=== PATIENT | female | born 1960 | race Caucasian/White ===

== ENCOUNTER 2017-02-17 13:28 | Inpatient (IN) | payer OTHER ==
[2017-02-17 17:04] VITALS: BMI 31.9
--- NOTE | 2017-02-17 18:02 | HP ---
CIWA Score - CIWA Score Nausea/Vomitin-Int. Nausea w/Dry Heave Muscle Tremors: 3 Anxiety: 4-Mod. Anxious/Guarded Agitation: 2 Paroxysmal Sweats: 2 Orientation: 2-Disoriented Date<2 days Tacttile Disturbances: 0-None Auditory Disturbances: 2-Mild Harshness/Frighten Visual Disturbances: 2-Mild Sensitivity Headache: 0-None Present CIWA-Ar Total Score: 21 Admission ROS S - HPI Chief Complaint: "I'm here because drinking has become something that I am always thinking about and I need to stop." Pt. is here to Detox from Alcohol. Allergies/Adverse Reactions: Allergies Allergy/AdvReac Type Severity Reaction Status Date / Time No Known Allergies Allergy Verified 02/17/17 17:25 History of Present Illness: Pt. is a 56 YO female here to Detox from Alcohol. This is pt.'s first Detox admission at [facility]. Pt. had a Det[place] admission at [facility] in [place]. Exam Limitations: No Limitations - Ebola screening Have you traveled outside of the country in the last 21 days: No Have you had contact with anyone from an Ebola affected area: No Have you been sick,other than usual withdrawal symptoms: No Do you have a fever: No - Review of Systems Constitutional: Chills, Diaphoresis, Fever, Loss of Appetite, Malaise, Night Sweats, Changes in sleep EENT: reports: Dental Problems (2 chipped teeth.) Respiratory: reports: SOB with Exertion Cardiac: reports: Palpitations GI: reports: Diarrhea, Nausea, Poor Appetite : reports: No Symptoms Reported Musculoskeletal: reports: No Symptoms Reported Integumentary: reports: Other (Small scabbing wound on right side of chin; started as pimple and patient has scratched at it. Small elavated papule on posterior hairline X 5-6 months. Patient denies discomfort at site, but has scratched at it frequently.) Neuro: reports: Tremors Endocrine: reports: No Symptoms Reported Hematology: reports: Easy Bruising Psychiatric: reports: Mood/Affect Appropiate, Orientated x3, Anxious, Depressed Other Systems: Reviewed and Negative Patient History - Patient Medical History Hx Anemia: No Hx Asthma: Yes (Albuterol Inhaler, Singulair.) Hx Chronic Obstructive Pulmonary Disease (COPD): No Hx Cancer: No Hx Cardiac Disorders: No Hx Congestive Heart Failure: No Hx Hypertension: No Hx Hypercholesterolemia: No Hx Pacemaker: No HX Cerebrovascular Accident: No Hx Seizures: No Hx Dementia: No Hx Diabetes: Yes (Type II; Takes Metformin (Last Taken approx. 5 days ago).) Hx Gastrointestinal Disorders: No Hx Liver Disease: Yes (Fatty Liver; 'Porcelin (Hardened) Gallbladder') Hx Genitourinary Disorders: No Hx Sexually Transmitted Disorders: No Hx Renal Disease (ESRD): No Hx Thyroid Disease: No Hx Human Immunodeficiency Virus (HIV): No (Last tested: 2017: NEGATIVE.) Hx Hepatitis C: No (Never Tested.) Hx Depression: Yes (On meds. TAKES GABAPENTIN FOR ANXIETY.) Hx Suicide Attempt: No (PATIENT DENIES CURRENT SI / HI.) Hx Bipolar Disorder: No Hx Schizophrenia: No Other Medical History: DENIES. - Patient Surgical History Past Surgical History: No Hx Neurologic Surgery: No Hx Cataract Extraction: No Hx Cardiac Surgery: No Hx Lung Surgery: No Hx Breast Surgery: No Hx Breast Biopsy: No Hx Abdominal Surgery: No Hx Appendectomy: No Hx Cholecystectomy: No Hx Genitourinary Surgery: No Hx Section: No Hx Orthopedic Surgery: No Hx Hysterectomy: No Anesthesia Reaction: No - PPD History Previous Implant?: Yes Documented Results: Negative w/o proof Implanted On Prior [facility] Admission?: No PPD to be Administered?: Yes - Reproductive History Patient is a Female of Child Bearing Age (11 -55 yrs old): Yes Last Menstrual Period: 09/22/16 Patient : No - Smoking Cessation Smoking history: Current every day smoker Have you smoked in the past 12 months: Yes Aproximately how many cigarettes per day: 6 Cigars Per Day: 0 Hx Chewing Tobacco Use: No Initiated information on smoking cessation: Yes 'Breaking Loose' booklet given: 02/17/17 (GIVEN TO PATIENT.) - Substance & Tx. History Hx Alcohol Use: Yes Hx Substance Use: Yes Substance Use Type: Alcohol Hx Substance Use Treatment: Yes (Detox admission at [facility] ([place] [facility] [place] 10/2016.) - Substances Abused Alcohol Route: Oral Frequency: Daily Amount used: 3-4 25 oz beers Age of first use: 18 Date of Last Use: 02/17/17 Family Disease History - Family Disease History Family Disease History: CA: Grandparent (Stomach.) Admission Physical Exam S - Vital Signs Vital Signs: Vital Signs - 24 hr 02/17/17 17:01 Temperature 98.3 F Pulse Rate 110 H Respiratory 18 Rate Blood Pressure 149/87 - Physical General Appearance: Yes: No Apparent Distress, Nourished, Appropriately Dressed , Tremorous, Anxious HEENTM: Yes: Hearing grossly Normal, Normocephalic, Normal Voice, TIA, Pharynx Normal Respiratory: Yes: Chest Non-Tender, No Respiratory Distress, No Accessory Muscle Use, Wheezing Neck: Yes: No masses,lesions,Nodules, Supple, Trachea in good position Breast: Yes: Breast Exam Deferred Cardiology: Yes: Regular Rhythm, Regular Rate, S1, S2 Abdominal: Yes: Normal Bowel Sounds, Non Tender, Flat, Soft Genitourinary: Yes: Within Normal Limits Back: Yes: Normal Inspection Musculoskeletal: Yes: full range of Motion, Gait Steady Extremities: Yes: Normal Range of Motion, Non-Tender, Tremors Neurological: Yes: Fully Oriented, Alert, Normal Mood/Affect, Normal Response Integumentary: Yes: Normal Color, Dry, Warm, Other (Small scabbing wound on right side of chin; started as pimple and patient has scratched at it. Small elavated papule on posterior hairline X 5-6 months. Patient denies discomfort at site, but has scratched at it frequently. Patient advised to follow-up with [facility] after discharge from detox for further evaluation.) Lymphatic: Yes: Within Normal Limits - Diagnostic (1) Alcohol dependence with uncomplicated withdrawal Current Visit: Yes Status: Acute (2) Nicotine dependence Current Visit: Yes Status: Chronic Qualifiers: Nicotine product type: cigarettes Substance use status: uncomplicated Qualified Code(s): F17.210 - Nicotine dependence, cigarettes, uncomplicated; F17.210 - Nicotine dependence, cigarettes, uncomplicated (3) Type II diabetes mellitus Current Visit: Yes Status: Acute Qualifiers: Diabetes mellitus complication status: without complication Diabetes mellitus cargo operations agent insulin use: without cargo operations agent use Qualified Code(s): E11.9 - Type 2 diabetes mellitus without complications; E11.9 - Type 2 diabetes mellitus without complications; E11.9 - Type 2 diabetes mellitus without complications; E11.9 - Type 2 diabetes mellitus without complications (4) Depression Current Visit: Yes Status: Chronic Qualifiers: Depression Type: unspecified Qualified Code(s): F32.9 - Major depressive disorder, single episode, unspecified; F32.9 - Major depressive disorder, single episode, unspecified; F32.9 - Major depressive disorder, single episode, unspecified (5) Fatty liver Current Visit: Yes Status: Chronic Cleared for Admission [facility] - Detox or Rehab [facility] Level of Care: Medically Managed Detox Regimen/Protocol: Librium [facility] Breath Alcohol Content Breath Alcohol Content: 0 Urine Pregancy Test - Result Urine Test Results: Negative- NO Line Present Urine Drug Screen - Results Drug Screen Negative: No Urine Drug Screen Results: OPI-Opiates
[2017-02-17] MEDS ORDERED: MENTHOL/PHENOL 1 EACH UD MM PRN (18:35)
[2017-02-17] MEDS ORDERED: chlordiazePOXIDE HCL 25 MG CAPSULE PO PRN (18:35)
[2017-02-17] MEDS ORDERED: chlordiazePOXIDE HCL 25 MG CAPSULE PO ONE (18:35)
[2017-02-17] MEDS ORDERED: NICOTINE POLACRILEX 2 MG GUM BC PRN (18:35)
[2017-02-17] MEDS ORDERED: MAGNESIUM HYDROX 2400MG/30ML ORAL SUSPENSION 30 ML CUP PO PRN (18:35)
[2017-02-17] MEDS ORDERED: ACETAMINOPHEN 325 MG TABLET (FP) PO PRN (18:35)
[2017-02-17] MEDS ORDERED: guaiFENesin/D-METHORPHAN HB 10 ML UNIT-DOSE CUPS PO PRN (18:35)
[2017-02-17] MEDS ORDERED: IBUPROFEN 400 MG TABLET (FP) PO PRN (18:35)
[2017-02-17] MEDS ORDERED: MAG HYDROX/AL HYDROX/SIMETH 30 ML UNIT-DOSE CUP PO PRN (18:35)
[2017-02-17] MEDS ORDERED: P-EPHED 60MG/TRIPROLIDI 2.5MG TABLET PO PRN (18:35)
[2017-02-17] MEDS ORDERED: MAGNESIUM CITRATE 300 ML BOTTLE PO PRN (18:35)
[2017-02-17] MEDS ORDERED: metFORMIN HCL 500 MG TABLET (FP) PO ONE ×2 (18:42→22:00)
[2017-02-17 21:18] LABS: URINE APPEARANCE CLEAR; URINE BILIRUBIN NEGATIVE (NEGATIVE); URINE BLOOD NEGATIVE (NEGATIVE); URINE COLOR YELLOW; URINE GLUCOSE (UA) 1+ (NEGATIVE); URINE KETONE NEGATIVE (NEGATIVE); URINE NITRITE NEGATIVE (NEGATIVE); URINE PROTEIN NEGATIVE (NEGATIVE); URINE UROBILINOGEN NEGATIVE mg/dL (0.2-1.0)
[2017-02-17] MEDS: NICOTINE 14 MG/24 HOURS TOPICAL PATCH TD SCH (21:50)
[2017-02-17] MEDS: THIAMINE HCL 100 MG TABLET (FP) PO SCH (21:50)
[2017-02-17] MEDS: MONTELUKAST NA 10 MG TABLET PO SCH (21:51)
[2017-02-17] MEDS: chlordiazePOXIDE HCL 25 MG CAPSULE PO SCH (22:01)
[2017-02-17] MEDS: BACITRACIN 0.9 GM PACKET TP SCH (22:44)
[2017-02-17 22:46] LABS: URINE LEUK ESTERASE Negative (NEGATIVE)
[2017-02-17] MEDS: diphenhydrAMINE HCL 50 MG CAPSULE PO PRN (23:12)
[2017-02-18] MEDS: chlordiazePOXIDE HCL 25 MG CAPSULE PO SCH ×4 (05:52→22:54)
[2017-02-18] MEDS: metFORMIN HCL 500 MG TABLET (FP) PO SCH ×2 (08:00→17:23)
[2017-02-18] MEDS: ALBUTEROL SO4 18 GM HFA INHALER IH PRN ×2 (09:57→22:56)
[2017-02-18] MEDS: BACITRACIN 0.9 GM PACKET TP SCH ×2 (10:38→22:54)
[2017-02-18] MEDS: NICOTINE 14 MG/24 HOURS TOPICAL PATCH TD SCH (10:38)
[2017-02-18] MEDS: PRENATAL VITAMINS W/ FOLIC ACID TABLET (FP) PO SCH (10:38)
[2017-02-18] MEDS: hydrOXYzine PAMOATE 50 MG CAPSULE (FP) PO PRN (10:41)
[2017-02-18 11:07] LABS: MCH 35.1 pg (25.7-33.7); MCHC 35.1 g/dl (32.0-36.0); MEAN CELL VOLUME 99.9 fl (80-96); MEAN PLT VOLUME 7.1 fl (7.5-11.1); PLATELET COUNT 136 K/MM3 (134-434); WHITE BLOOD COUNT 5.8 K/mm3 (4.0-10.0)
[2017-02-18 11:21] LABS: ALBUMIN 3.7 g/dl (3.4-5.0); ALK PHOS 144 U/L (45-117); ANION GAP 9 (8-16); BILIRUBIN,TOTAL 0.8 mg/dL (0.2-1.0); CALCIUM 8.9 mg/dL (8.5-10.1); CO2 29 mmol/L (21-32); CREATININE 0.5 mg/dL (0.55-1.02); GLUCOSE,RANDOM 194 mg/dL (74-106); SGOT/AST 40 U/L (15-37); SGPT/ALT 65 U/L (12-78)
[2017-02-18] MEDS ORDERED: FLU VACCINE QUAD 60 MCG/0.5 ML (MDV 17-18) IM ONE (12:00)
--- NOTE | 2017-02-18 14:05 | PN ---
S CIWA - CIWA Score Nausea/Vomitin Muscle Tremors: 3 Anxiety: 3 Agitation: 3 Paroxysmal Sweats: 1-Minimal Palms Moist Orientation: 0-Oriented Tacttile Disturbances: 1-Very Mild Itch/Numbness Auditory Disturbances: 1-Very Mild Visual Disturbances: 0-None Headache: 2-Mild CIWA-Ar Total Score: 17 BHS Progress Note (SOAP) Subjective: ALERT,IRRITABLE,ANXIOUS,INTERRUPTED SLEEP,TREMOR Objective: 02/18/17 14:02 Vital Signs Temperature 97.3 F L 02/18/17 13:58 Pulse Rate 99 H 02/18/17 13:58 Respiratory Rate 18 02/18/17 13:58 Blood Pressure 142/91 02/18/17 13:58 O2 Sat by Pulse Oximetry (%) EKG NSR,NORMAL ECG Laboratory Last Values WBC 5.8 K/mm3 (4.0-10.0) 02/18/17 07:50 RBC 4.07 M/mm3 (3.60-5.2) 02/18/17 07:50 Hgb 14.3 GM/dL (10.7-15.3) 02/18/17 07:50 Hct 40.6 % (32.4-45.2) 02/18/17 07:50 MCV 99.9 fl (80-96) H 02/18/17 07:50 MCH 35.1 pg (25.7-33.7) H 02/18/17 07:50 MCHC 35.1 g/dl (32.0-36.0) 02/18/17 07:50 RDW 13.0 % (11.6-15.6) 02/18/17 07:50 Plt Count 136 K/MM3 (134-434) 02/18/17 07:50 MPV 7.1 fl (7.5-11.1) L 02/18/17 07:50 Sodium 140 mmol/L (136-145) 02/18/17 07:50 Potassium 3.9 mmol/L (3.5-5.1) 02/18/17 07:50 Chloride 102 mmol/L (98-107) 02/18/17 07:50 Carbon Dioxide 29 mmol/L (21-32) 02/18/17 07:50 Anion Gap 9 (8-16) 02/18/17 07:50 BUN 8 mg/dL (7-18) 02/18/17 07:50 Creatinine 0.5 mg/dL (0.55-1.02) L 02/18/17 07:50 Creat Clearance w eGFR > 60 (>60) 02/18/17 07:50 Random Glucose 194 mg/dL (74-106) H 02/18/17 07:50 Calcium 8.9 mg/dL (8.5-10.1) 02/18/17 07:50 Total Bilirubin 0.8 mg/dL (0.2-1.0) 02/18/17 07:50 AST 40 U/L (15-37) H 02/18/17 07:50 ALT 65 U/L (12-78) 02/18/17 07:50 Alkaline Phosphatase 144 U/L (45-117) H 02/18/17 07:50 Total Protein 7.0 g/dl (6.4-8.2) 02/18/17 07:50 Albumin 3.7 g/dl (3.4-5.0) 02/18/17 07:50 Urine Color Yellow 02/17/17 20:00 Urine Appearance Clear 02/17/17 20:00 Urine pH 5.0 (5.0-8.0) 02/17/17 20:00 Ur Specific [place] 1.010 (1.005-1.025) 02/17/17 20:00 Urine Protein Negative (NEGATIVE) 02/17/17 20:00 Urine Glucose (UA) 1+ (NEGATIVE) H 02/17/17 20:00 Urine Ketones Negative (NEGATIVE) 02/17/17 20:00 Urine Blood Negative (NEGATIVE) 02/17/17 20:00 Urine Nitrite Negative (NEGATIVE) 02/17/17 20:00 Urine Bilirubin Negative (NEGATIVE) 02/17/17 20:00 Urine Urobilinogen Negative mg/dL (0.2-1.0) 02/17/17 20:00 Ur Leukocyte Esterase Negative (NEGATIVE) 02/17/17 20:00 RPR Titer Nonreactive (NONREACTIVE) 02/18/17 07:50 02/18/17 14:04 Assessment: 02/18/17 14:03 WITHDRAWAL SYMPTOM 02/18/17 14:04 Plan: CONTINUE DETOX,BGM MONITORING
--- NOTE | 2017-02-18 15:44 | CONSULT ---
[facility] Psychiatric Consult - Data Date of interview: 02/18/17 Admission source: [facility] Identifying data: First admission to [facility] for this 56 y/o female seeking detox treatment on for alcohol dependence.Patient is single without children,domiciled,unemployed and supported on Public Assistance. Substance Abuse History: Ms Berg admits to actively using alcohol as described in this [facility] report : Smoking history: Current every day smoker. Have you smoked in the past 12 months: Yes. Aproximately how many cigarettes per day: 6. Cigars Per Day: 0. Hx Chewing Tobacco Use: No. Initiated information on smoking cessation: Yes. 'Breaking Loose' booklet given: (GIVEN TO PATIENT.). - Substance & Tx. History. Hx Alcohol Use: Yes. Hx Substance Use: Yes. Substance Use Type: Alcohol. Hx Substance Use Treatment: Yes (Detox admission at [facility] ([place] 10/2016.). - Substances Abused. Alcohol. Route: Oral. Frequency: Daily. Amount used: 3 -4 25 oz beers. Age of first use: 18. Date of Last Use: 02/17/17 Medical History: Co-morbidities : fatty liver,gallstones (self-report),diabetes mellitus and bronchial asthma. Psychiatric History: One psychiatric hospitalization ([facility]) in October 2016.Patient endorses MDD and Anxiety Disorder.Ms Berg is currently followed at the [facility] clinic.Prescribed gabapentin 900 mg po tid + remeron 15 mg/ hs + lexapro 20 mg/day.Not taken for past two weeks (coverage issues independent from patient).Doses are verified via survey of pharmacy claims of 12/27/16 registered at [facility].Patient denies history of suicide attempts. Physical/Sexual Abuse/Trauma History: Patient denies history of abuse. Additional Comment: Urine Drug Screen Results: OPI-Opiates.Noted. Mental Status Exam - Mental Status Exam Alert and Oriented to: Time, Place, Person Cognitive Function: Good Patient Appearance: Well Groomed (obese,short stature) Mood: Hopeful, Euthymic Affect: Appropriate, Normal Range Patient Behavior: Fatigued, Appropriate, Cooperative Speech Pattern: Clear, Appropriate Voice Loudness: Normal Thought Process: Intact, Goal Oriented Thought Disorder: Not Present Hallucinations: Denies Suicidal Ideation: Denies Homicidal Ideation: Denies Insight/Judgement: Poor Sleep: Poorly, Difficulty falling asleep Appetite: Good Muscle strength/Tone: Normal Gait/Station: Normal Psychiatric Findings - Problem List ([place] 1, 2,3) (1) Alcohol dependence with uncomplicated withdrawal Current Visit: Yes Status: Acute (2) Nicotine dependence Current Visit: Yes Status: Chronic Qualifiers: Nicotine product type: cigarettes Substance use status: uncomplicated Qualified Code(s): F17.210 - Nicotine dependence, cigarettes, uncomplicated; F17.210 - Nicotine dependence, cigarettes, uncomplicated (3) Depressive disorder Current Visit: Yes Status: Chronic (4) Type II diabetes mellitus Current Visit: Yes Status: Chronic Qualifiers: Diabetes mellitus complication status: without complication Diabetes mellitus senior living insulin use: without local intermodal truck driver use Qualified Code(s): E11.9 - Type 2 diabetes mellitus without complications; E11.9 - Type 2 diabetes mellitus without complications; E11.9 - Type 2 diabetes mellitus without complications; E11.9 - Type 2 diabetes mellitus without complications (5) Fatty liver Current Visit: Yes Status: Chronic (6) Insomnia Current Visit: Yes Status: Chronic - Initial Treatment Plan Initial Treatment Plan: Psychoeducation.Detoxification.Medications : gabapentin 600 mg po tid + lexapro 20 mg po daily + remeron 7.5 mg po hs.Side effects/ benefits of each drug ot this regimen are explained to the patient.Ms Berg is agreable to this plan of care.Observation.
[2017-02-18] MEDS ORDERED: GABAPENTIN 400 MG CAPSULE (FP) PO SCH (22:00)
[2017-02-18] MEDS ORDERED: MIRTAZAPINE 15 MG TABLET (FP) PO SCH (22:00)
[2017-02-18] MEDS: MIRTAZAPINE 15 MG TABLET (FP) PO SCH (22:55)
[2017-02-18] MEDS: GABAPENTIN 300 MG CAPSULE (FP) PO SCH (22:56)
[2017-02-18] MEDS: MONTELUKAST NA 10 MG TABLET PO SCH (22:57)
[2017-02-18] MEDS: THIAMINE HCL 100 MG TABLET (FP) PO SCH (22:57)
[2017-02-18] MEDS: diphenhydrAMINE HCL 50 MG CAPSULE PO PRN (22:59)
[2017-02-19] MEDS: chlordiazePOXIDE HCL 25 MG CAPSULE PO SCH ×3 (05:51→17:24)
[2017-02-19] MEDS: GABAPENTIN 300 MG CAPSULE (FP) PO SCH ×3 (05:51→22:29)
[2017-02-19] MEDS: metFORMIN HCL 500 MG TABLET (FP) PO SCH ×2 (06:10→17:24)
--- NOTE | 2017-02-19 08:46 | EKG ---
Test Reason : Blood Pressure : / mmHG Vent. Rate : 100 BPM Atrial Rate : 100 BPM P-R Int : 132 ms QRS Dur : 092 ms QT Int : 378 ms P-R-T Axes : 062 066 060 degrees QTc Int : 487 ms NORMAL SINUS RHYTHM NONSPECIFIC ST ABNORMALITY PROLONGED QT ABNORMAL ECG NO PREVIOUS ECGS AVAILABLE Confirmed by JAMIE SHARMA MD ([id number]) on 02/19/2017 8:46:22 AM Referred By: Confirmed By:JAMIE SHARMA MD
--- NOTE | 2017-02-19 09:10 | EKG ---
Test Reason : Blood Pressure : / mmHG Vent. Rate : 096 BPM Atrial Rate : 096 BPM P-R Int : 136 ms QRS Dur : 094 ms QT Int : 378 ms P-R-T Axes : 059 066 061 degrees QTc Int : 477 ms NORMAL SINUS RHYTHM NORMAL ECG WHEN COMPARED WITH ECG OF 17-FEB-2017 20:45, NO SIGNIFICANT CHANGE WAS FOUND Confirmed by JAMIE SHARMA MD ([id number]) on 02/19/2017 9:10:32 AM Referred By: Confirmed By:JAMIE SHARMA MD
[2017-02-19] MEDS: BACITRACIN 0.9 GM PACKET TP SCH ×2 (10:39→22:29)
[2017-02-19] MEDS: NICOTINE 14 MG/24 HOURS TOPICAL PATCH TD SCH (10:40)
[2017-02-19] MEDS: ESCITALOPRAM OXALATE 20 MG TABLET (FP) PO SCH (10:40)
[2017-02-19] MEDS: PRENATAL VITAMINS W/ FOLIC ACID TABLET (FP) PO SCH (10:40)
[2017-02-19] MEDS: hydrOXYzine PAMOATE 50 MG CAPSULE (FP) PO PRN (10:40)
--- NOTE | 2017-02-19 14:09 | PN ---
S CIWA - CIWA Score Nausea/Vomitin Muscle Tremors: 3 Anxiety: 2 Agitation: 2 Paroxysmal Sweats: 1-Minimal Palms Moist Orientation: 0-Oriented Tacttile Disturbances: 1-Very Mild Itch/Numbness Auditory Disturbances: 1-Very Mild Visual Disturbances: 0-None Headache: 2-Mild CIWA-Ar Total Score: 15 BHS Progress Note (SOAP) Subjective: ALERT,IRRITABLE,ANXIOUS,INTERRUPTED SLEEP,TREMOR Objective: 02/19/17 14:07 Vital Signs Temperature 98 F 02/19/17 13:54 Pulse Rate 94 H 02/19/17 13:54 Respiratory Rate 16 02/19/17 13:54 Blood Pressure 137/84 02/19/17 13:54 O2 Sat by Pulse Oximetry (%) BGM 280 02/19/17 14:08 Laboratory Last Values WBC 5.8 K/mm3 (4.0-10.0) 02/18/17 07:50 RBC 4.07 M/mm3 (3.60-5.2) 02/18/17 07:50 Hgb 14.3 GM/dL (10.7-15.3) 02/18/17 07:50 Hct 40.6 % (32.4-45.2) 02/18/17 07:50 MCV 99.9 fl (80-96) H 02/18/17 07:50 MCH 35.1 pg (25.7-33.7) H 02/18/17 07:50 MCHC 35.1 g/dl (32.0-36.0) 02/18/17 07:50 RDW 13.0 % (11.6-15.6) 02/18/17 07:50 Plt Count 136 K/MM3 (134-434) 02/18/17 07:50 MPV 7.1 fl (7.5-11.1) L 02/18/17 07:50 Sodium 140 mmol/L (136-145) 02/18/17 07:50 Potassium 3.9 mmol/L (3.5-5.1) 02/18/17 07:50 Chloride 102 mmol/L (98-107) 02/18/17 07:50 Carbon Dioxide 29 mmol/L (21-32) 02/18/17 07:50 Anion Gap 9 (8-16) 02/18/17 07:50 BUN 8 mg/dL (7-18) 02/18/17 07:50 Creatinine 0.5 mg/dL (0.55-1.02) L 02/18/17 07:50 Creat Clearance w eGFR > 60 (>60) 02/18/17 07:50 POC Glucometer 334 UNITS (()) 02/18/17 16:29 Random Glucose 194 mg/dL (74-106) H 02/18/17 07:50 Calcium 8.9 mg/dL (8.5-10.1) 02/18/17 07:50 Total Bilirubin 0.8 mg/dL (0.2-1.0) 02/18/17 07:50 AST 40 U/L (15-37) H 02/18/17 07:50 ALT 65 U/L (12-78) 02/18/17 07:50 Alkaline Phosphatase 144 U/L (45-117) H 02/18/17 07:50 Total Protein 7.0 g/dl (6.4-8.2) 02/18/17 07:50 Albumin 3.7 g/dl (3.4-5.0) 02/18/17 07:50 Urine Color Yellow 02/17/17 20:00 Urine Appearance Clear 02/17/17 20:00 Urine pH 5.0 (5.0-8.0) 02/17/17 20:00 Ur Specific [place] 1.010 (1.005-1.025) 02/17/17 20:00 Urine Protein Negative (NEGATIVE) 02/17/17 20:00 Urine Glucose (UA) 1+ (NEGATIVE) H 02/17/17 20:00 Urine Ketones Negative (NEGATIVE) 02/17/17 20:00 Urine Blood Negative (NEGATIVE) 02/17/17 20:00 Urine Nitrite Negative (NEGATIVE) 02/17/17 20:00 Urine Bilirubin Negative (NEGATIVE) 02/17/17 20:00 Urine Urobilinogen Negative mg/dL (0.2-1.0) 02/17/17 20:00 Ur Leukocyte Esterase Negative (NEGATIVE) 02/17/17 20:00 RPR Titer Nonreactive (NONREACTIVE) 02/18/17 07:50 Hepatitis C Antibody <0.1 s/co ratio (0.0-0.9) 02/18/17 07:50 Assessment: 02/19/17 14:08 WITHDRAWAL SYMPTOM 02/19/17 14:09 Plan: CONTINUE DETOX,BGM MONITORING
[2017-02-19] MEDS: THIAMINE HCL 100 MG TABLET (FP) PO SCH (22:29)
[2017-02-19] MEDS: diphenhydrAMINE HCL 50 MG CAPSULE PO PRN (22:29)
[2017-02-19] MEDS: chlordiazePOXIDE 5 MG CAPSULE PO SCH (22:29)
[2017-02-19] MEDS: MONTELUKAST NA 10 MG TABLET PO SCH (22:30)
[2017-02-19] MEDS: MIRTAZAPINE 15 MG TABLET (FP) PO SCH (22:30)
[2017-02-19] MEDS: ALBUTEROL SO4 18 GM HFA INHALER IH PRN (22:30)
[2017-02-20] MEDS: GABAPENTIN 300 MG CAPSULE (FP) PO SCH ×3 (06:17→22:07)
[2017-02-20] MEDS: chlordiazePOXIDE 5 MG CAPSULE PO SCH ×3 (06:17→17:09)
[2017-02-20] MEDS: metFORMIN HCL 500 MG TABLET (FP) PO SCH ×2 (06:23→17:09)
[2017-02-20] MEDS: hydrOXYzine PAMOATE 50 MG CAPSULE (FP) PO PRN ×3 (08:42→19:50)
[2017-02-20] MEDS: ESCITALOPRAM OXALATE 20 MG TABLET (FP) PO SCH (10:23)
[2017-02-20] MEDS: PRENATAL VITAMINS W/ FOLIC ACID TABLET (FP) PO SCH (10:23)
[2017-02-20] MEDS: BACITRACIN 0.9 GM PACKET TP SCH ×2 (10:23→22:06)
[2017-02-20] MEDS: NICOTINE 14 MG/24 HOURS TOPICAL PATCH TD SCH (10:24)
--- NOTE | 2017-02-20 11:02 | PN ---
BHS Progress Note (SOAP) Subjective: interrupted sleep anxiety Objective: 02/20/17 11:01 Vital Signs Temperature 98.1 F 02/20/17 09:41 Pulse Rate 97 H 02/20/17 09:41 Respiratory Rate 20 02/20/17 09:41 Blood Pressure 130/85 02/20/17 09:41 O2 Sat by Pulse Oximetry (%) aaox3 ambulating no acute distress Assessment: 02/20/17 11:01 withdrawal sx Plan: continue detox increase fluids d/c in am
[2017-02-20] MEDS: LOPERAMIDE HCL 2 MG CAPSULE PO PRN (15:20)
[2017-02-20] MEDS: chlordiazePOXIDE HCL 10 MG CAPSULE PO SCH (22:07)
[2017-02-20] MEDS: MIRTAZAPINE 15 MG TABLET (FP) PO SCH (22:07)
[2017-02-20] MEDS: MONTELUKAST NA 10 MG TABLET PO SCH (22:08)
[2017-02-20] MEDS: ALBUTEROL SO4 18 GM HFA INHALER IH PRN (22:08)
[2017-02-20] MEDS: THIAMINE HCL 100 MG TABLET (FP) PO SCH (22:08)
[2017-02-20] MEDS: diphenhydrAMINE HCL 50 MG CAPSULE PO PRN (22:09)
[2017-02-21] MEDS: diphenhydrAMINE HCL 50 MG CAPSULE PO PRN (01:22)
[2017-02-21] MEDS: GABAPENTIN 300 MG CAPSULE (FP) PO SCH (05:43)
[2017-02-21] MEDS: chlordiazePOXIDE HCL 10 MG CAPSULE PO SCH (05:43)
[2017-02-21 06:16] VITALS: BP 125/72; PULSE 103; TEMP 98.2
[2017-02-21] MEDS: metFORMIN HCL 500 MG TABLET (FP) PO SCH (08:11)
[2017-02-21] MEDS: BACITRACIN 0.9 GM PACKET TP SCH (09:24)
[2017-02-21] MEDS: ESCITALOPRAM OXALATE 20 MG TABLET (FP) PO SCH (09:24)
[2017-02-21] MEDS: PRENATAL VITAMINS W/ FOLIC ACID TABLET (FP) PO SCH (09:24)
[2017-02-21] MEDS: NICOTINE 14 MG/24 HOURS TOPICAL PATCH TD SCH (09:25)
[2017-02-21] MEDS: LOPERAMIDE HCL 2 MG CAPSULE PO PRN (09:31)
--- NOTE | 2017-02-21 11:36 | DS ---
[facility] Detox Discharge Summary Admission Date: 02/17/17 Discharge Date: 02/21/17 - History Present History: Alcohol Dependence Additional Comments: Detox completed. Patient is alert and oriented x 3. Encouraged to follow up with PMD at [facility] for medical management. - Physical Exam Results Vital Signs: Vital Signs Temperature 98.2 F 02/21/17 06:00 Pulse Rate 103 H 02/21/17 06:00 Respiratory Rate 18 02/21/17 06:00 Blood Pressure 125/72 02/21/17 06:00 O2 Sat by Pulse Oximetry (%) Pertinent Admission Physical Exam Findings: Asthma, DM, fatty liver and depression - Treatment Hospital Course: Detox Protocol Followed, Detoxed Safely, Responded well, Discharged Condition Good Patient has Accepted a Rehab Referral to: [facility] Roland JOHNSON - Medication Discharge Medications: Ambulatory Orders Albuterol Sulfate Inhaler - [Ventolin HFA Inhaler -] 2 inh PO Q4H PRN 02/17/17 Escitalopram Oxalate [Lexapro -] 20 mg PO DAILY 02/17/17 Gabapentin [Neurontin -] 900 mg PO Q8H 02/17/17 Mirtazapine 7.5 mg PO HS 02/17/17 Escitalopram Oxalate [Lexapro -] 20 mg PO DAILY #30 tablet 02/18/17 Gabapentin [Neurontin -] 800 mg PO TID #60 capsule 02/18/17 Mirtazapine 7.5 mg PO HS #30 tablet 02/18/17 Metformin HCl [Glucophage] 1,000 mg PO BID #60 mg 02/21/17 Montelukast Na [Singulair -] 10 mg PO HS #30 tab 02/21/17 - Diagnosis (1) Alcohol dependence with uncomplicated withdrawal Status: Acute (2) Fatty liver Status: Chronic (3) Nicotine dependence Status: Chronic Qualifiers: Nicotine product type: cigarettes Substance use status: uncomplicated Qualified Code(s): F17.210 - Nicotine dependence, cigarettes, uncomplicated; F17.210 - Nicotine dependence, cigarettes, uncomplicated (4) Type II diabetes mellitus Status: Chronic Qualifiers: Diabetes mellitus complication status: without complication Diabetes mellitus oysterman insulin use: without oysterman use Qualified Code(s): E11.9 - Type 2 diabetes mellitus without complications; E11.9 - Type 2 diabetes mellitus without complications; E11.9 - Type 2 diabetes mellitus without complications; E11.9 - Type 2 diabetes mellitus without complications - AMA Did Patient Leave Against Medical Advice: No
== END 2017-02-21 09:38 | disposition home or self-care (01) | DRG 775 ==
LOC: YASAS 13:28 → Y6N 19:22
PROVIDERS: ADMIT Internal Medicine; ATTEND Internal Medicine
PROC: HZ2ZZZZ Detoxification Services for Substance Abuse Treatment (ICD-10-PCS; principal; 2017-02-17)
DX: F10.230 Alcohol dependence with withdrawal, uncomplicated (principal); F17.210 Nicotine dependence, cigarettes, uncomplicated; F39 Unspecified mood [affective] disorder; G47.00 Insomnia, unspecified; E11.9 Type 2 diabetes mellitus without complications; Z79.84 Long term (current) use of oral hypoglycemic drugs; K76.0 Fatty (change of) liver, not elsewhere classified
CPT/HCPCS: 36415; 80053; 81003; 83036; 85027; 86593; 86803; 90688; 93005; 93010; G0008